=== PATIENT | male | born 1980 | race African-American/Black ===

== ENCOUNTER 2020-06-18 06:13 | Emergency (ER) | payer OTHER, SELFPAY ==
[~2020-06-18] VITALS: Ht 180.3 cm; Wt 86.2 kg
[2020-06-18 06:16] VITALS: Ht 180.3 cm; Wt 86.2 kg
[2020-06-18 06:58] VITALS: BP 141/97
== END 2020-06-18 06:58 | disposition home or self-care (01) ==
LOC: ED 06:13
DX: J98.01 Acute bronchospasm (principal); F17.210 Nicotine dependence, cigarettes, uncomplicated; Z91.010 Allergy to peanuts; Z20.828 Contact with and (suspected) exposure to other viral communicable diseases
CPT/HCPCS: U0003-CS

== ENCOUNTER 2020-07-27 04:15 | Emergency (ER) | payer OTHER ==
[~2020-07-27] VITALS: Ht 180.3 cm; Wt 89.9 kg
[2020-07-27 04:24] VITALS: Ht 180.3 cm; Wt 89.9 kg
[2020-07-27 05:52] VITALS: BP 135/91
== END 2020-07-27 05:52 | disposition home or self-care (01) ==
LOC: ED 04:15
DX: J98.01 Acute bronchospasm (principal); F17.210 Nicotine dependence, cigarettes, uncomplicated; Z91.010 Allergy to peanuts
CPT/HCPCS: 99406; J7512; J7613; J7644; Q0092